=== PATIENT | female | born 1945 | race Caucasian/White ===

== ENCOUNTER 2019-04-03 16:12 | Inpatient (IN) | payer MEDICARE, BC ==
[~2019-04-03] VITALS: Ht 165.1 cm; Wt 78.5 kg
[~2019-04-03 16:12] MED LIST: ACET325; ALPR.5 PO; AMLO5 PO; ASPI81CH PO; ASPI81EC PO; ATEN25 PO; AZAT50 PO; BIOTIN PO; CALCAVITD; CALCAVITDA PO; CHEMO; CLON.5 PO; CYAN1000 PO; CYTOXIN; Calcium/Vitamin D (6 PO; DIGO.125; DIGO.125 PO; DIGO.25; ERGO400 PO; ESCI10 PO; ESOM20; ESOM20 PO; FISH1000 PO; FOLI400; FURO40 PO; GABA100 PO; GLIP5ER; HUMALOG; INSLI100I SC; INSLIS75I SC; KLOR CON M; Klor-Con 1010 MEQ PO; LANOXIN; LASIX; LEVOXYL; LEVSOD100; LEVSOD100 PO; LEVSOD125; LEVSOD125 PO; LEVSOD75; LISI5; LOSA25 PO; MELO7.5; METF500; METO25ER PO; MYCO250 PO; MYCOPHENOLATE PO; NEBI5 PO; NYST100000 PO; NYST100SU; NYSTATIN; Neurontin 100100 MG PO; OMEG1CAP30 PO; OMEP20ER PO; PARI1 PO; POTA10T PO; PRAV10; PRAV20; PRAV20 PO; PRAV40 PO; PRED10 PO; PRED20; PRED5 PO; RALO60 PO; RAMI1.25 PO; RXPRED10; RXPRED10 PO; RXSULTRIDS; SMZ/TMP DS; SULFAMETHOXAZOLE; SULTRIEL; TRIMETHOPRIM; ZZCYCL50; Zovirax800 MG PO; [UNRECOGNIZED DRUG - OTHER]; [UNRECOGNIZED DRUG - REMARK]
[2019-04-03 17:14] LABS: BASOPHILS ABSOLUTE AUTO 0.01 K/mm3 (0.00-0.23); BASOPHILS PERCENT AUTO 0 % (0-2); EOSINOPHILS PERCENT AUTO 0 % (0-6); Hematocrit 42.6 % (33.0-51.0); Hemoglobin 13.1 g/dL (11.5-16.0); IMMATURE GRAN ABSOLUTE AUTO 0.16 K/mm3 (0.00-0.10); IMMATURE GRAN PERCENT AUTO 1 % (0-1); LYMPHOCYTES ABSOLUTE AUTO 0.84 K/mm3 (0.84-5.20); LYMPHOCYTES PERCENT AUTO 6 % (21-46); MONOCYTES ABSOLUTE AUTO 0.19 K/mm3 (0.16-1.47); MONOCYTES PERCENT AUTO 1 % (4-13); Mean Corpuscular HGB 26.6 pg (26.0-34.0); Mean Corpuscular HGB Conc 30.8 g/dL (31.5-36.5); Mean Corpuscular Volume 87 fL (80-100); Mean Platelet Volume 10.5 fL (9.1-12.4); NEUTROPHILS ABSOLUTE AUTO 12.51 K/mm3 (1.96-9.15); NEUTROPHILS PERCENT AUTO 91 % (41-73); Platelet Count 196 K/mm3 (150-400); RDW Coefficient Variation 14.9 % (11.7-14.2); RDW Standard Deviation 47.1 fL (35.1-46.3); Red Blood Cell Count 4.92 M/mm3 (3.80-5.20); White Blood Cell Count 13.71 K/mm3 (4.00-11.30)
[2019-04-03 17:46] LABS: C-REACTIVE PROTEIN, EXT RANGE 6.85 mg/dL (0.000-0.300)
[2019-04-03 17:51] LABS: Albumin, Blood 3.7 g/dL (3.4-5.0); Bilirubin, Total 0.6 mg/dL (0.1-1.0); Bun/Creatinine Ratio 26.4 (12.0-20.0); Calcium, Blood 9.4 mg/dL (8.5-10.1); Creatinine, Blood 1.29 mg/dL (0.40-1.00); Globulin, Blood 3.7 g/dL (2.2-4.0); Total Protein, Blood 7.4 g/dL (6.4-8.2)
[2019-04-03] MEDS ORDERED: OMEPRAZOLE20 MG PO (18:55)
[2019-04-03] MEDS ORDERED: Cellcept500 MG PO (18:55)
[2019-04-03] MEDS ORDERED: MERIBIN5 MG PO (18:55)
[2019-04-03] MEDS ORDERED: DOCU100 (18:55)
[2019-04-03] MEDS ORDERED: Aspirin EC81 MG PO (18:55)
[2019-04-03] MEDS ORDERED: ATEN25 PO (18:56)
[2019-04-03] MEDS ORDERED: PRED5 PO (18:56)
[2019-04-03] MEDS ORDERED: MONT10T PO (18:56)
[2019-04-03] MEDS ORDERED: Pravachol40 MG PO (18:56)
[2019-04-03] MEDS ORDERED: TELM40 PO (18:56)
[2019-04-03] MEDS ORDERED: Synthroid137 MCG PO (18:57)
[2019-04-03 18:58] LABS: Source, Urine Clean Catch
[2019-04-03 19:01] LABS: Bilirubin, Urine Neg (Neg); Blood, Urine 4+ (Neg); Glucose Qualitative, Urine Neg (Neg); Ketones, Urine Neg (Neg); Leukocyte Esterase, Urine 1+ (Neg); Nitrite, Urine Pos (Neg); Protein, Urine 2+ (Neg); Urobilinogen, Urine NORM (Normal)
[2019-04-03 19:06] LABS: Appearance, Urine Clear (Clear); Color, Urine Yellow (P-Yellow)
[2019-04-03 19:07] LABS: Bacteria Many /hpf; Squamous Epithelial Cells Few /hpf (Few)
[2019-04-03] MEDS ORDERED: VITAMIN B-122000 MCG PO (19:49)
[2019-04-03] MEDS ORDERED: VITAMIN D35000 UNI1 PO (19:50)
[2019-04-03] MEDS ORDERED: ASCO500 PO (19:50)
--- NOTE | 2019-04-04 03:24 | NUR ---
04/03/192106 74 Y/O FEMALE ADMITTED TO ROOM 355 PER CART FROM ER WITH ALL PERSONAL BELONGINGS. PT SIGNED PHOTO PERMIT PAPER (SEE PHOTOS ON CHART BILATERAL LOWER EXTREMITIES). ALERT AND ORIENTED X 4, CHEERFUL. 0015 DR HALL AT BEDSIDE.
--- NOTE | 2019-04-04 03:27 | NUR ---
04/03/192229 24 HOUR URINE COLLECTION PROCESS STARTED.
--- NOTE | 2019-04-04 04:14 | NUR ---
SHIFT SUMMARY: 74 Y/O FEMALE RESTED COMFORTABLY ALL SHIFT, DENIES PAIN OR NAUSEA, 24 HOUR COLLECTION STARTED 04/03/19 AT 2230, HAPPY AND COOPERATIVE, BED LOW POSITION, CALL LIGHT AT SIDE.
[2019-04-04 05:24] LABS: Hematocrit 42.2 % (33.0-51.0); Hemoglobin 13.1 g/dL (11.5-16.0); Mean Corpuscular HGB 26.6 pg (26.0-34.0); Mean Corpuscular Volume 86 fL (80-100); Mean Platelet Volume 10.4 fL (9.1-12.4); Platelet Count 189 K/mm3 (150-400); RDW Coefficient Variation 14.8 % (11.7-14.2); RDW Standard Deviation 46.2 fL (35.1-46.3); Red Blood Cell Count 4.93 M/mm3 (3.80-5.20)
[2019-04-04 05:44] LABS: Albumin, Blood 3.5 g/dL (3.4-5.0); Anion Gap 7 mmol/L (6-16); Blood Urea Nitrogen 32 mg/dL (8-24); Bun/Creatinine Ratio 27.8 (12.0-20.0); CO2, Blood 29 mmol/L (21-32); Calcium, Blood 9.2 mg/dL (8.5-10.1); Chloride, Blood 104 mmol/L (98-108); Creatinine, Blood 1.15 mg/dL (0.40-1.00); Glomerular Filtration Rate 49 (60-); Glucose, Blood 252 mg/dL (70-99); Magnesium, Blood 2.5 mg/dL (1.6-2.4); Phosphorus, Blood 2.4 mg/dL (2.5-4.9); Potassium, Blood 4.4 mmol/L (3.5-5.5); Sodium, Blood 140 mmol/L (136-145)
--- NOTE | 2019-04-04 17:33 | NUR ---
SHIFT SUMMARY PATIENT IS ALERT AND ORIENTED, INDEPENDENT IN THE ROOM. SHE NOW HAS PRN BENADRYL CREAM AVAILABLE FOR HER PRN TID FOR HER ITCHING ON HER LEGS. PATIENT IS PLEASANT. NO ACUTE CONCERNS FROM HER AT THIS TIME.
[2019-04-04 23:24] LABS: Protein, Urine Quantitative 12.8 mg/dL (0.0-11.9)
--- NOTE | 2019-04-05 04:13 | NUR ---
SHIFT SUMMARY: 74 Y/O FEMALE RESTED COMFORTABLY ALL SHIFT WITH NO C/O PAIN OR NAUSEA, PT COMPLETED 24 HOUR AND SAMPLE SENT TO LAB AT 2230, HAPPY AND COOPERATIVE, PT CONTINUES TO HAVE PURPURA SCATTERED ACROSS BILATERAL LOWER EXTREMITIES WITH TRIACET 1% CREAM APPLIED ORDERED, OCCASIONAL ITCHING TO UPPER BACK AND UPPER ARMS NOTED WITH BENADRYL CREAM ALSO APPLIED ORDERED, BED LOW POSITION, CALL LIGHT AT SIDE.
[2019-04-05 05:16] LABS: BASOPHILS ABSOLUTE AUTO 0.02 K/mm3 (0.00-0.23); BASOPHILS PERCENT AUTO 0 % (0-2); EOSINOPHILS PERCENT AUTO 0 % (0-6); Hematocrit 40.8 % (33.0-51.0); Hemoglobin 12.8 g/dL (11.5-16.0); IMMATURE GRAN ABSOLUTE AUTO 0.23 K/mm3 (0.00-0.10); IMMATURE GRAN PERCENT AUTO 1 % (0-1); LYMPHOCYTES PERCENT AUTO 4 % (21-46); MONOCYTES ABSOLUTE AUTO 0.39 K/mm3 (0.16-1.47); MONOCYTES PERCENT AUTO 2 % (4-13); Mean Corpuscular HGB 26.8 pg (26.0-34.0); Mean Corpuscular HGB Conc 31.4 g/dL (31.5-36.5); Mean Corpuscular Volume 86 fL (80-100); Mean Platelet Volume 10.3 fL (9.1-12.4); NEUTROPHILS ABSOLUTE AUTO 15.18 K/mm3 (1.96-9.15); NEUTROPHILS PERCENT AUTO 92 % (41-73); Platelet Count 205 K/mm3 (150-400); RDW Coefficient Variation 14.9 % (11.7-14.2); RDW Standard Deviation 46.5 fL (35.1-46.3); Red Blood Cell Count 4.77 M/mm3 (3.80-5.20); White Blood Cell Count 16.52 K/mm3 (4.00-11.30)
[2019-04-05 05:32] LABS: Albumin, Blood 3.1 g/dL (3.4-5.0); Anion Gap 7 mmol/L (6-16); Blood Urea Nitrogen 34 mg/dL (8-24); CO2, Blood 29 mmol/L (21-32); Calcium, Blood 9.2 mg/dL (8.5-10.1); Chloride, Blood 105 mmol/L (98-108); Creatinine, Blood 1.31 mg/dL (0.40-1.00); Glomerular Filtration Rate 42 (60-); Glucose, Blood 229 mg/dL (70-99); Magnesium, Blood 2.6 mg/dL (1.6-2.4); Potassium, Blood 4.1 mmol/L (3.5-5.5); Sodium, Blood 141 mmol/L (136-145)
[2019-04-05 07:07] LABS: HBSAG SCREEN Negative (Negative); HEP A AB, IGM Negative (Negative); HEP B CORE AB, IGM Negative (Negative); HEP C VIRUS AB <0.1 (0.0-0.9)
[2019-04-05 09:06] LABS: HIV SCREEN 4TH GENERATION WRFX Non Reactive (Non Reactive)
--- NOTE | 2019-04-05 18:32 | NUR ---
SHIFT SUMMARY PT'S PURPURA RASH HAS REMAINED MOSTLY ON HER LEGS WITH SOME ON HER ABD. NO CHANGES TO REPORT AT THIS TIME. WILL MONITOR UNTIL REPORT TO ONCOMING RN.
--- NOTE | 2019-04-06 04:26 | NUR ---
SHIFT SUMMARY: 74 Y/O FEMALE RESTED COMFORTABLY ALL SHIFT, C/O OCCASIONAL ITCHING THIS SHIFT WITH BENADRYL CREAM APPLIED TO ARM/LEGS/ABDOMEN, DECREASED DARK PURPURA SPOTS NOTED BILATERAL LOWER LEGS, HAPPY AND COOPERATIVE, ABLE WALK BATHROOM AND BACK WITHOUT ISSUES, BED LOW POSITION, CALL LIGHT AT SIDE.
[2019-04-06 04:46] LABS: BASOPHILS ABSOLUTE AUTO 0.02 K/mm3 (0.00-0.23); BASOPHILS PERCENT AUTO 0 % (0-2); EOSINOPHILS PERCENT AUTO 0 % (0-6); Hematocrit 38.7 % (33.0-51.0); Hemoglobin 12.1 g/dL (11.5-16.0); IMMATURE GRAN ABSOLUTE AUTO 0.32 K/mm3 (0.00-0.10); IMMATURE GRAN PERCENT AUTO 2 % (0-1); LYMPHOCYTES ABSOLUTE AUTO 0.68 K/mm3 (0.84-5.20); LYMPHOCYTES PERCENT AUTO 5 % (21-46); MONOCYTES ABSOLUTE AUTO 0.32 K/mm3 (0.16-1.47); MONOCYTES PERCENT AUTO 2 % (4-13); Mean Corpuscular HGB 26.4 pg (26.0-34.0); Mean Corpuscular HGB Conc 31.3 g/dL (31.5-36.5); Mean Corpuscular Volume 84 fL (80-100); Mean Platelet Volume 10.3 fL (9.1-12.4); NEUTROPHILS ABSOLUTE AUTO 12.43 K/mm3 (1.96-9.15); NEUTROPHILS PERCENT AUTO 90 % (41-73); Platelet Count 185 K/mm3 (150-400); RDW Coefficient Variation 15.1 % (11.7-14.2); RDW Standard Deviation 45.6 fL (35.1-46.3); Red Blood Cell Count 4.59 M/mm3 (3.80-5.20); White Blood Cell Count 13.77 K/mm3 (4.00-11.30)
[2019-04-06 05:03] LABS: Anion Gap 5 mmol/L (6-16); Blood Urea Nitrogen 33 mg/dL (8-24); Bun/Creatinine Ratio 27.7 (12.0-20.0); CO2, Blood 29 mmol/L (21-32); Calcium, Blood 9.2 mg/dL (8.5-10.1); Chloride, Blood 108 mmol/L (98-108); Creatinine, Blood 1.19 mg/dL (0.40-1.00); Glomerular Filtration Rate 47 (60-); Glucose, Blood 176 mg/dL (70-99); Magnesium, Blood 2.5 mg/dL (1.6-2.4); Phosphorus, Blood 3.5 mg/dL (2.5-4.9); Potassium, Blood 3.8 mmol/L (3.5-5.5); Sodium, Blood 142 mmol/L (136-145)
--- NOTE | 2019-04-06 06:27 | NUR ---
DR HALL CALLED WITH ORDERS PREDNISONE 60MG QD; CELLCEPT 250MG BID.
[2019-04-06] MEDS ORDERED: CALCIUM 600 +1 EA11 PO (12:09)
[2019-04-06] MEDS ORDERED: Cefpodoxime Pr200 MG PO (12:10)
[2019-04-06] MEDS ORDERED: Benadryl Itch28.3 G1 TOP (12:11)
[2019-04-06] MEDS ORDERED: Humalog100 UNIT/3 SC (12:11)
[2019-04-06] MEDS ORDERED: Culturelle1 CAP PO (12:12)
[2019-04-06] MEDS ORDERED: MONT10T PO (12:13)
[2019-04-06] MEDS ORDERED: PRED20 PO (12:15)
[2019-04-06] MEDS ORDERED: TRIA15CR3 TOP (12:16)
--- NOTE | 2019-04-06 14:31 | NUR ---
Upon receiving an admit referral requesting spiritual care, I visited patient. Patient immediately tells me that she is going home soon. 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 Patient shows no signs of spiritual stress. I provided empathic listening, reinforced helpful attitudes and practices and encouraged self-care. Patient voiced appeciation for the visit.
--- NOTE | 2019-04-06 16:03 | NUR ---
DISCHARGE NOTE PATIENT DISCHARGED HOME WITH PATIENT'S . PT IS COOPERATIVE AND PLEASANT. BLE PURPURA PRESENT BUT FADED COMPARED WITH PICTURES TAKEN IN CHART. THERE ARE A FEW SMALL PINK BLOTCHES ON BUE THAT OCCASIONALLY ITCH, BENADRYL CREAM APPLIED. 5 UNITS HUMALOG GIVEN WITH LUNCH, PT GAVE IT HERSELF WITH COACHING. VERBAL EDUCATION GIVEN TO PATIENT ON HOW TO ADMINISTER INSULIN FROM A PEN. PATIENT STATES SHE USED A PEN WHEN SHE WAS ON PREDNISONE 11-12 YEARS AGO SO IT IS SOMEWHAT FAMILIAR. DISCHARGE PACKET GIVEN TO PATIENT, INCLUDING THE MEDIUM SLIDING SCALE WHICH WAS EXPLAINED TO PT. NEW MEDS EXPLAINED TO PT ALONG WITH THEIR INFO SHEETS. ALL QUESTIONS ANSWERED AND PT SIGNED DC FORM. 2 SUTURES REMOVED FROM R LEG WITHOUT COMPLICATION. IV REMOVED. SECURITY SLIP GIVEN TO PATIENT AND REMINDER TO COLLECT WALLET/LOCKED ITEMS FROM SECURITY ON WAY OUT. PATIENT DISCHARGED AT 1600.
--- NOTE | 2019-04-06 17:10 | NUR ---
Mrs. Lockhart responded well to prayer and emotional encouragement. She has a samira chris and is well-supported by rastafarian and friends. She is happy to be going home today. No fears or concerns presented.
[2019-04-07 07:08] LABS: ANTIGLOMERULAR BM AB 4 units (0-20)
[2019-04-07 15:08] LABS: A/G RATIO 1.1 (0.7-1.7); ALBUMIN 3.3 g/dL (2.9-4.4); ALPHA-1-GLOBULIN 0.3 g/dL (0.0-0.4); ALPHA-2-GLOBULIN 0.8 g/dL (0.4-1.0); GAMMA GLOBULIN 1.3 g/dL (0.4-1.8); GLOBULIN, TOTAL 3.3 g/dL (2.2-3.9); IMMUNOGLOBULIN A, QN, SERUM 121 mg/dL (64-422); IMMUNOGLOBULIN G, QN, SERUM 1009 mg/dL (700-1600); IMMUNOGLOBULIN M, QN, SERUM 303 mg/dL (26-217); M-SPIKE Not Observed g/dL (Not Observed); PROTEIN, TOTAL, SERUM 6.6 g/dL (6.0-8.5)
[2019-04-08 13:07] LABS: M-SPIKE, % Not Observed % (Not Observed); PROTEIN,TOTAL,URINE 8.4 mg/dL (Not Estab.)
[2019-04-08 13:07] LABS: ANA DIRECT Positive (Negative); ANTI-CENTROMERE B ANTIBODIES >8.0 AI (0.0-0.9); ANTI-DNA (DS) AB QN <1 IU/mL (0-9); ANTI-JO-1 <0.2 AI (0.0-0.9); ANTICHROMATIN ANTIBODIES <0.2 AI (0.0-0.9); ANTIPROTEINASE 3 (PR-3) ABS <3.5 U/mL (0.0-3.5); ANTIRIBOSOMAL P ANTIBODIES <0.2 AI (0.0-0.9); ANTISCLERODERMA-70 ANTIBODIES <0.2 AI (0.0-0.9); ATYPICAL PANCA <1:20 titer ({null, Neg:<1:20}); CYTOPLASMIC (C-ANCA) <1:20 titer ({null, Neg:<1:20}); PERINUCLEAR (P-ANCA) 1:40 titer ({null, Neg:<1:20}); RNP ANTIBODIES 0.4 AI (0.0-0.9); SJOGREN'S ANTI-SS-A <0.2 AI (0.0-0.9); SJOGREN'S ANTI-SS-B <0.2 AI (0.0-0.9); SMITH ANTIBODIES <0.2 AI (0.0-0.9); SMITH/RNP ANTIBODIES <0.2 AI (0.0-0.9)
== END 2019-04-06 16:00 | disposition home or self-care (01) | DRG 546 ==
LOC: ER 16:12 → MEDS 16:13 → ER 21:15 → MEDS 21:15
PROVIDERS: Family Medicine; Internal Medicine Nephrology; Physician Assistant; ADMIT Internal Medicine
DX: I77.6 Arteritis, unspecified (principal); N17.9 Acute kidney failure, unspecified; N39.0 Urinary tract infection, site not specified; N25.81 Secondary hyperparathyroidism of renal origin; Z79.82 Long term (current) use of aspirin; E11.22 Type 2 diabetes mellitus with diabetic chronic kidney disease; Z90.5 Acquired absence of kidney; E03.9 Hypothyroidism, unspecified; E86.9 Volume depletion, unspecified; E83.39 Other disorders of phosphorus metabolism; I12.9 Hypertensive chronic kidney disease with stage 1 through stage 4 chronic kidney disease, or unspecified chronic kidney disease; I25.10 Atherosclerotic heart disease of native coronary artery without angina pectoris; B96.1 Klebsiella pneumoniae [K. pneumoniae] as the cause of diseases classified elsewhere; N18.9 Chronic kidney disease, unspecified; Z79.4 Long term (current) use of insulin
CPT/HCPCS: 36415; 76770; 80053; 80069; 80074; 81001; 81050; 82595; 82784; 82947; 83516; 83520; 83735; 84156; 84165; 84166; 85025; 85027; 85651; 86038; 86140; 86256; 86334; 86335; 87077; 87086; 87186; 87389; 96374; 99284; G0378; J0696; J2930; J7030; J7060; J7512; J7517

== ENCOUNTER 2021-02-08 23:10 | Emergency (ER) | payer MEDICARE, BC ==
[~2021-02-08] VITALS: Ht 165.1 cm; Wt 82.5 kg
[~2021-02-08 23:10] MED LIST changes: +ASCO500 PO; +Aspirin EC81 MG PO; +Benadryl Itch28.3 G1 TOP; +CALCIUM 600 +1 EA11 PO; +Cefpodoxime Pr200 MG PO; +Cellcept500 MG PO; +Culturelle1 CAP PO; +DOCU100; +Humalog100 UNIT/3 SC; +MERIBIN5 MG PO; +MONT10T PO; +OMEPRAZOLE20 MG PO; +PRED20 PO; +Pravachol40 MG PO; +Synthroid137 MCG PO; +TELM40 PO; +TRIA15CR3 TOP; +VITAMIN B-122000 MCG PO; +VITAMIN D35000 UNI1 PO
[2021-02-08 23:25] LABS: BASOPHILS ABSOLUTE AUTO 0.04 K/mm3 (0.00-0.23); BASOPHILS PERCENT AUTO 0 % (0-2); EOSINOPHILS ABSOLUTE AUTO 0.01 K/mm3 (0.00-0.68); EOSINOPHILS PERCENT AUTO 0 % (0-6); Hematocrit 43.6 % (33.0-51.0); Hemoglobin 14.5 g/dL (11.5-16.0); IMMATURE GRAN ABSOLUTE AUTO 0.35 K/mm3 (0.00-0.10); IMMATURE GRAN PERCENT AUTO 3 % (0-1); LYMPHOCYTES ABSOLUTE AUTO 0.83 K/mm3 (0.84-5.20); LYMPHOCYTES PERCENT AUTO 6 % (21-46); MONOCYTES ABSOLUTE AUTO 0.55 K/mm3 (0.16-1.47); MONOCYTES PERCENT AUTO 4 % (4-13); Mean Corpuscular HGB 30.7 pg (26.0-34.0); Mean Corpuscular HGB Conc 33.3 g/dL (31.5-36.5); Mean Corpuscular Volume 92 fL (80-100); Mean Platelet Volume 10.9 fL (9.1-12.4); NEUTROPHILS ABSOLUTE AUTO 11.94 K/mm3 (1.96-9.15); NEUTROPHILS PERCENT AUTO 87 % (41-73); Platelet Count 211 K/mm3 (150-400); RDW Coefficient Variation 13.8 % (11.7-14.2); RDW Standard Deviation 46.6 fL (35.1-46.3); Red Blood Cell Count 4.73 M/mm3 (3.80-5.20); White Blood Cell Count 13.72 K/mm3 (4.00-11.30)
[2021-02-08] MEDS ORDERED: ATEN100 PO (23:30)
[2021-02-08] MEDS ORDERED: XARELTO20 MG PO (23:31)
[2021-02-08] MEDS ORDERED: CALCIUM 600 +1 EA11 PO (23:32)
[2021-02-08 23:48] LABS: Alanine Aminotransfer (ALT/SGP 23 U/L (12-78); Albumin, Blood 3.7 g/dL (3.4-5.0); Albumin/Globulin Ratio 1.3 (0.8-1.8); Alk Phos 72 U/L (50-136); Anion Gap 7 mmol/L (6-16); Aspartate Aminotrans (AST/SGOT 17 U/L (12-37); Bilirubin, Total 0.3 mg/dL (0.1-1.0); Blood Urea Nitrogen 24 mg/dL (8-24); Bun/Creatinine Ratio 23.3 (12.0-20.0); CO2, Blood 27 mmol/L (21-32); Calcium, Blood 8.9 mg/dL (8.5-10.1); Chloride, Blood 106 mmol/L (98-108); Creatinine, Blood 1.03 mg/dL (0.40-1.00); Globulin, Blood 2.9 g/dL (2.2-4.0); Glomerular Filtration Rate 55 (60-); Glucose, Blood 327 mg/dL (70-99); Sodium, Blood 140 mmol/L (136-145); Total Protein, Blood 6.6 g/dL (6.4-8.2); Troponin I <0.015 ng/mL (0.000-0.040)
== END 2021-02-09 02:19 | disposition home or self-care (01) ==
LOC: ER 23:10
PROVIDERS: Emergency Medicine
DX: R07.9 Chest pain, unspecified (principal); E11.22 Type 2 diabetes mellitus with diabetic chronic kidney disease; I12.9 Hypertensive chronic kidney disease with stage 1 through stage 4 chronic kidney disease, or unspecified chronic kidney disease; N18.9 Chronic kidney disease, unspecified; E03.9 Hypothyroidism, unspecified; Z79.01 Long term (current) use of anticoagulants; Z79.4 Long term (current) use of insulin; Z79.899 Other long term (current) drug therapy; Z88.5 Allergy status to narcotic agent; Z88.8 Allergy status to other drugs, medicaments and biological substances
CPT/HCPCS: 80053; 84484; 85025; 93005; 93010; 99285-25

== ENCOUNTER → 2021-07-07 | Outpatient (CLI) | payer MEDICARE, BC ==
[~2021-07-07] MED LIST changes: +ATEN100 PO; +XARELTO20 MG PO
== END | disposition home or self-care (01) ==
LOC: LAB 09:35 → LAB SHORT 09:35
DX: N39.0 Urinary tract infection, site not specified (principal)
CPT/HCPCS: 87077; 87086; 87186

== ENCOUNTER 2022-05-28 17:33 | Emergency (ER) | payer OTHER, MEDICARE, BC ==
[~2022-05-28] VITALS: Ht 162.6 cm; Wt 77.1 kg
== END 2022-05-28 19:52 | disposition home or self-care (01) ==
LOC: ER 17:33
DX: S16.1XXA Strain of muscle, fascia and tendon at neck level, initial encounter (principal); I12.9 Hypertensive chronic kidney disease with stage 1 through stage 4 chronic kidney disease, or unspecified chronic kidney disease; N18.9 Chronic kidney disease, unspecified; E11.22 Type 2 diabetes mellitus with diabetic chronic kidney disease; I25.10 Atherosclerotic heart disease of native coronary artery without angina pectoris; E03.9 Hypothyroidism, unspecified; Z88.8 Allergy status to other drugs, medicaments and biological substances; Z88.5 Allergy status to narcotic agent; Z91.048 Other nonmedicinal substance allergy status; Z79.899 Other long term (current) drug therapy; Z79.01 Long term (current) use of anticoagulants; Z79.82 Long term (current) use of aspirin; Z79.4 Long term (current) use of insulin; V89.2XXA Person injured in unspecified motor-vehicle accident, traffic, initial encounter
CPT/HCPCS: 72040; 99284-25

== ENCOUNTER → 2024-03-04 | Outpatient (CLI) | payer MEDICARE, BC | LOC: LAB 11:09 → LAB SHORT 11:09 | DX: N39.0 Urinary tract infection, site not specified (principal) | CPT/HCPCS: 87077; 87086; 87186 ==

== ENCOUNTER 2024-07-23 19:08 | Emergency (ER) | payer MEDICARE, BC ==
[~2024-07-23] VITALS: Ht 162.6 cm; Wt 76.2 kg
[2024-07-23 19:14] VITALS: BP 134/96
[2024-07-23 19:45] LABS: BASOPHILS ABSOLUTE AUTO 0.05 K/mm3 (0.00-0.23); BASOPHILS PERCENT AUTO 1 % (0-2); EOSINOPHILS ABSOLUTE AUTO 0.07 K/mm3 (0.00-0.68); EOSINOPHILS PERCENT AUTO 1 % (0-6); Hematocrit 42.9 % (33.0-51.0); IMMATURE GRAN ABSOLUTE AUTO 0.05 K/mm3 (0.00-0.10); IMMATURE GRAN PERCENT AUTO 1 % (0-1); LYMPHOCYTES ABSOLUTE AUTO 1.42 K/mm3 (0.84-5.20); LYMPHOCYTES PERCENT AUTO 14 % (21-46); MONOCYTES ABSOLUTE AUTO 0.75 K/mm3 (0.16-1.47); MONOCYTES PERCENT AUTO 7 % (4-13); Mean Corpuscular HGB 28.9 pg (26.0-34.0); Mean Corpuscular HGB Conc 32.6 g/dL (31.5-36.5); Mean Corpuscular Volume 89 fL (80-100); Mean Platelet Volume 10.1 fL (9.1-12.4); NEUTROPHILS PERCENT AUTO 78 % (41-73); Platelet Count 200 K/mm3 (150-400); RDW Coefficient Variation 13.3 % (11.7-14.2); RDW Standard Deviation 42.8 fL (35.1-46.3); Red Blood Cell Count 4.84 M/mm3 (3.80-5.20); White Blood Cell Count 10.54 K/mm3 (4.00-11.30)
[2024-07-23 20:15] LABS: Albumin, Blood 3.3 g/dL (3.4-5.0); Albumin/Globulin Ratio 0.8 (0.8-1.8); Bilirubin, Total 1.3 mg/dL (0.1-1.0); Bun/Creatinine Ratio 10.9 (12.0-20.0); Creatinine, Blood 1.29 mg/dL (0.40-1.00); Globulin, Blood 4.1 g/dL (2.2-4.0); Total Protein, Blood 7.4 g/dL (6.4-8.2)
[2024-07-23 20:23] LABS: Influenza A, PCR NEGATIVE (NEGATIVE); Influenza B, PCR NEGATIVE (NEGATIVE); Resp Syncytial Virus, PCR NEGATIVE (NEGATIVE); SARS-Cov-2 (COVID-19) PCR, MMC NEGATIVE (NEGATIVE)
[2024-07-23] MEDS ORDERED: RX Prepack Albuterol 1 PREPACK/6.7 GM INH UD ONE (21:25)
[2024-07-23] MEDS ORDERED: PRED20 PO (21:26)
[2024-07-23] MEDS ORDERED: MethylPREDNISolone Sod Succ 125 MG Vial IV ONE (21:30)
== END 2024-07-23 21:50 | disposition home or self-care (01) ==
LOC: ER 19:08
PROVIDERS: Student in an Organized Health Care Education/Training Program
DX: J44.1 Chronic obstructive pulmonary disease with (acute) exacerbation (principal); J06.9 Acute upper respiratory infection, unspecified; E11.22 Type 2 diabetes mellitus with diabetic chronic kidney disease; I12.9 Hypertensive chronic kidney disease with stage 1 through stage 4 chronic kidney disease, or unspecified chronic kidney disease; N18.9 Chronic kidney disease, unspecified; E03.9 Hypothyroidism, unspecified; Z79.82 Long term (current) use of aspirin; Z79.899 Other long term (current) drug therapy; Z88.5 Allergy status to narcotic agent; Z88.8 Allergy status to other drugs, medicaments and biological substances; Z91.041 Radiographic dye allergy status
CPT/HCPCS: 0241U; 71046; 80053; 84484; 85025; 93005; 93010; 96374; 99285-25; A9270; J2919

== ENCOUNTER → 2024-08-26 | Outpatient (CLI) | payer MEDICARE, BC | LOC: LAB SHORT 13:04 → LAB 13:04 | DX: N39.0 Urinary tract infection, site not specified (principal) | CPT/HCPCS: 87077; 87086; 87186 ==